=== PATIENT | female | born 1950 | race Caucasian/White ===

== ENCOUNTER 2024-09-01 12:44 | Day surgery (SDC) | payer MEDICARE, OTHER ==
[2024-09-01] MEDS ORDERED: Depo-Medrol 40 MG/ML IM ONE (12:45)
[2024-09-01] MEDS ORDERED: LIDOCAINE HCL 2% 100 MG/5 ML IJ ONE (12:45)
[2024-09-01] MEDS ORDERED: propofoL IV ONE (14:28)
--- NOTE | 2024-09-01 16:32 | XRAY ---
Indication: Bilateral L4-S1 MBB. Intraoperative fluoroscopy provided for 13 seconds. Single digital spot image submitted for interpretation demonstrates posterior needle tips projecting over expected left and right L4-S1 nerve roots. Correlate with intraoperative findings/report.
--- NOTE | 2024-09-01 16:36 | XRAY ---
13 seconds of fluoroscopy was used in surgery for a bilateral L4-S1 MBB.
== END 2024-09-01 15:10 | disposition home or self-care (01) ==
LOC: SDC-PAIN 12:44
PROVIDERS: ATTEND Psychiatry & Neurology Pain Medicine
DX: M47.816 Spondylosis without myelopathy or radiculopathy, lumbar region (principal)
CPT/HCPCS: 64493; 64494; 72020; 77002; J2704

== ENCOUNTER 2024-09-29 11:23 | Day surgery (SDC) | payer MEDICARE, OTHER ==
[2024-09-29] MEDS ORDERED: BUPIVACAINE 0.5% VIAL IJ ONE (11:24)
[2024-09-29] MEDS ORDERED: Depo-Medrol 40 MG/ML IM ONE (11:24)
[2024-09-29] MEDS ORDERED: propofoL IV ONE (13:54)
--- NOTE | 2024-09-29 14:57 | XRAY ---
Indication: Bilateral L4-S1 MBB. Intraoperative fluoroscopy provided for 9 seconds. Single digital spot image submitted for interpretation demonstrates posterior needle tips projecting over expected left and right L4-S1 nerve roots. Correlate with intraoperative findings/report.
--- NOTE | 2024-09-29 14:59 | XRAY ---
9 seconds of fluoroscopy was used in surgery for a bilateral L4-S1 MBB.
== END 2024-09-29 14:18 | disposition home or self-care (01) ==
LOC: SDC-PAIN 11:23
PROVIDERS: ATTEND Psychiatry & Neurology Pain Medicine
DX: M47.816 Spondylosis without myelopathy or radiculopathy, lumbar region (principal); M79.18 Myalgia, other site
CPT/HCPCS: 64493; 64494; 72020; J2704

== ENCOUNTER 2024-10-07 12:13 | Day surgery (SDC) | payer MEDICARE, OTHER ==
[2024-10-07] MEDS ORDERED: BUPIVACAINE 0.5% VIAL IJ ONE (12:14)
[2024-10-07] MEDS ORDERED: LIDOCAINE HCL 1% AMPUL 5 ML IJ ONE (12:14)
[2024-10-07] MEDS ORDERED: Depo-Medrol 40 MG/ML IM ONE (12:14)
[2024-10-07] MEDS ORDERED: propofoL IV ONE (14:26)
[2024-10-07] MEDS ORDERED: Xylocaine-Mpf 2% 5 Ml Vial ONE (14:26)
--- NOTE | 2024-10-07 19:27 | XRAY ---
17 seconds of fluoroscopy was used in surgery for a right L4-S1 RFA.
--- NOTE | 2024-10-07 19:41 | XRAY ---
Indication: Right L4-S1 RFA. Intraoperative fluoroscopy provided for 17 seconds. 3 digital spot image submitted for interpretation demonstrates posterior needle tips projecting over expected right L4-S1 nerve roots. Correlate with intraoperative findings/report.
== END 2024-10-07 14:56 | disposition home or self-care (01) ==
LOC: SDC-PAIN 12:13
PROVIDERS: ATTEND Psychiatry & Neurology Pain Medicine
DX: M47.817 Spondylosis without myelopathy or radiculopathy, lumbosacral region (principal)
CPT/HCPCS: 64635; 64636; 72100; 99100; J2704

== ENCOUNTER 2024-10-14 09:44 | Day surgery (SDC) | payer MEDICARE, OTHER ==
[2024-10-14] MEDS ORDERED: Depo-Medrol 40 MG/ML IM ONE (09:45)
[2024-10-14] MEDS ORDERED: LIDOCAINE HCL 1% AMPUL 5 ML IJ ONE (09:45)
[2024-10-14] MEDS ORDERED: BUPIVACAINE 0.5% VIAL IJ ONE (09:45)
[2024-10-14] MEDS ORDERED: propofoL IV ONE (11:32)
--- NOTE | 2024-10-14 13:03 | XRAY ---
Indication: Left L4-S1 RFA. Intraoperative fluoroscopy provided for 22 seconds. 4 digital spot image submitted for interpretation demonstrates posterior needle tips projecting over expected left L4-S1 nerve roots. Correlate with intraoperative findings/report.
--- NOTE | 2024-10-14 13:07 | XRAY ---
22 seconds of fluoroscopy were used in surgery for a left L4-S1 RFA.
[2024-10-14] MEDS ORDERED: Lactated Ringers 1,000 ML IV ONE (13:11)
== END 2024-10-14 12:08 | disposition home or self-care (01) ==
LOC: SDC-PAIN 09:44
PROVIDERS: ATTEND Psychiatry & Neurology Pain Medicine
DX: M47.817 Spondylosis without myelopathy or radiculopathy, lumbosacral region (principal)
CPT/HCPCS: 64635; 64636; 72100; 99100; J2704